=== PATIENT | female | born 1990 | race Caucasian/White ===

== ENCOUNTER 2022-05-16 20:09 | Emergency (ER) | payer BC ==
[~2022-05-16] VITALS: Ht 157.5 cm; Wt 54.4 kg
--- NOTE | 2022-05-16 20:27 | NUR ---
MD in room examing patient.
[2022-05-16] MEDS ORDERED: IV NORMAL SALINE 500 ML BAG IV ONE (20:30)
[2022-05-16] MEDS ORDERED: IV NORMAL SALINE 1000 ML BAG IV ONE (20:30)
[2022-05-16] MEDS ORDERED: LIDOCAINE VISCUS 2% 15 ML UDC MM ONE (21:00)
[2022-05-16] MEDS ORDERED: MAG HYDROX/AL HYDROX/SIMETH 30 ML LIQUID UDC PO ONE (21:00)
[2022-05-16 21:09] LABS: HEMATOCRIT 39.9 % (31.2-41.9); MEAN CORPUSCULAR HEMOGLOBIN 31.4 uug (24.7-32.8); MEAN CORPUSCULAR VOLUME 91.9 fL (75.5-95.3); PLATELET COUNT (AUTO) 342 K/uL (179-408)
[2022-05-16] MEDS ORDERED: LIDOCAINE VISCUS 2% 15 ML UDC ONE (21:17)
[2022-05-16] MEDS ORDERED: MAG HYDROX/AL HYDROX/SIMETH 30 ML LIQUID UDC ONE (21:18)
[2022-05-16 21:33] LABS: ETHANOL < 3 MG/DL (0-0)
--- NOTE | 2022-05-16 21:55 | NUR ---
Patient statd that they no longer want IV fluids and asked for them to be discontinued.
--- NOTE | 2022-05-16 22:14 | NUR ---
Patient does not wish to proceed with medical care recommended by (Lee). Patient given information related to possible complications, up to and including , which could occur as a result of leaving the hospital at this time. Patient verbalizes understanding of risks involved due to leaving against medical advice. Patient has signed AMA form. Patient walked out with steady gait accompainied by her mother.
[2022-05-16 22:21] VITALS: BP 155/95
[2022-05-16 22:24] LABS: BILIRUBIN,TOTAL 0.9 mg/dL (0.2-1.0); MAGNESIUM 1.9 mg/dL (1.8-2.4); PHOSPHOROUS 3.4 mg/dL (2.5-4.9); POTASSIUM 4.1 mmol/L (3.5-5.1); TOTAL PROTEIN, SERUM 7.6 g/dL (6.4-8.2)
[2022-05-16 23:27] LABS: ACETAMINOPHEN < 2.0 ug/mL (10-30)
== END 2022-05-16 22:20 | disposition left against medical advice (07) ==
LOC: ER 20:12
DX: R07.9 Chest pain, unspecified (principal); R00.0 Tachycardia, unspecified; Z53.29 Procedure and treatment not carried out because of patient's decision for other reasons; R03.0 Elevated blood-pressure reading, without diagnosis of hypertension; F10.10 Alcohol abuse, uncomplicated
CPT/HCPCS: 80053; 83735; 84100; 85025; 84484; 71045; 99284; 96360; 83605; 80299; 80320; 80307; J7040; A4663; G0480